=== PATIENT | male | born 1970 | race Caucasian/White ===

== ENCOUNTER 2018-01-31 09:52 | Emergency (ER) | END 2018-01-31 13:39 | disposition home or self-care (01) ==

== ENCOUNTER 2018-02-19 16:45 | Inpatient (IN) | END 2018-02-19 19:54 | disposition left against medical advice (07) | DRG 98 ==

== ENCOUNTER 2018-02-22 14:14 | Inpatient (IN) | END 2018-02-23 05:42 | disposition left against medical advice (07) | DRG 977 ==

== ENCOUNTER 2018-11-13 19:19 | Emergency (ER) | payer MEDICAID, OTHER ==
[~2018-11-13] VITALS: Ht 180.3 cm; Wt 90.0 kg
[~2018-11-13 19:19] MED LIST: ALBU18HF INHALATION; AZIT600T4 PO; DOLU50TA PO; EMTR1TAB16 PO; FLUC200T52 PO; LEVO137T3 PO; ONDA4TAB13 PO; SULF1TAB31 PO
[2018-11-13 19:33] VITALS: Ht 180.3 cm; Wt 90.0 kg
[2018-11-13 22:17] VITALS: BP 110/79; PULSE 82; RESP 18
== END 2018-11-13 22:18 | disposition home or self-care (01) ==
LOC: E/R 19:19
DX: F10.920 Alcohol use, unspecified with intoxication, uncomplicated (principal); I10 Essential (primary) hypertension; E03.9 Hypothyroidism, unspecified; F17.210 Nicotine dependence, cigarettes, uncomplicated; R51 Headache; R40.2142 Coma scale, eyes open, spontaneous, at arrival to emergency department; R40.2362 Coma scale, best motor response, obeys commands, at arrival to emergency department; R40.2242 Coma scale, best verbal response, confused conversation, at arrival to emergency department; Z21 Asymptomatic human immunodeficiency virus [HIV] infection status
CPT/HCPCS: 70450; 82962; Z7502